=== PATIENT | female | born 1960 | race American Indian/Alaskan Native ===

== ENCOUNTER 2018-01-23 13:18 | Inpatient (IN) | payer OTHER ==
--- NOTE | 2018-01-23 13:46 | ED PDOC ---
Arrival/HPI - General Time Seen by Provider: 01/23/18 13:30 Historian: Patient - History of Present Illness Narrative History of Present Illness (Text): 01/23/18 13:45 57 year old female, with past medical history of hypertension, "thyroid problem ", migraine and UTI, surgical history of hysterectomy on 01/13/2017, presents to the Emergency department from [facility] complaining of constant lower abdominal pain since 2 am this morning. Patient states waking up with the pain with mild improvement after loose bowel movement at 4am this morning. She states pain however persisted and she went to [facility]. Upon examination at [facility], patient expressed "excruciating" pain to left lower and upper quadrant upon palpation and was subsequently referred to the [facility] [place] evaluation. Patient states she has been generally feeling unwell since yesterday informing mild nausea, intermittent migraines and decreased appetite. Patient states having a bowl of cereal prior to going to bed last night. Patient denies any episodes of vomiting. Patient informs exacerbation of pain with movement however denies pain with inspirations. Patient denies any fever but has possibly felt chills, denies hematuria, denies dysuria, denies vaginal bleeding, denies back pain, denies leg swelling or discomfort, chest pain, shortness of breath or any other complaints. PMD: Dr. Kate 01/23/18 17:01 Time/Duration: Other (since 2 am this morning) Symptom Onset: Gradual Symptom Course: Unchanged Quality: Aching Activities at Onset: Light Context: Home Past Medical History - Provider Review Nursing Documentation Reviewed: Yes Family/Social History - Physician Review Nursing Documentation Reviewed: Yes Family/Social History: No Known Family HX Allergies/Home Meds Allergies/Adverse Reactions: Allergies Penicillins Allergy (Verified 01/23/18 13:47) ITCHING Review of Systems - Review of Systems Constitutional: Fatigue. absent: Fevers ENT: absent: Hearing Changes Respiratory: absent: SOB Cardiovascular: absent: Chest Pain Gastrointestinal: Abdominal Pain, Nausea, Appetite Changes. absent: Diarrhea, Vomiting, Hematochezia, Hematemesis Genitourinary Female: absent: Dysuria, Hematuria, Vaginal Bleeding Musculoskeletal: absent: Back Pain, Neck Pain Skin: absent: Rash Neurological: absent: Headache, Focal Weakness Endocrine: absent: Polyuria Hemo/Lymphatic: absent: Easy Bleeding Psychiatric: absent: Depression Physical Exam - Physical Exam Narrative Physical Exam (Text): 01/23/18 14:01 Head: Atraumatic. Normocephalic. Eyes: PERRL. EOMI. Conjunctivae are not pale. Sclera anicteric. ENT: Mucous membranes are moist and intact. Oropharynx is clear and symmetric. Neck: Supple. Full ROM. No JVD. No lymphadenopathy. No meningeal signs. Cardiovascular: Regular rate. Regular rhythm. No murmurs, rubs, or gallops. Distal pulses are 2+ and symmetric. Pulmonary/Chest: No evidence of respiratory distress. Clear to auscultation bilaterally. No wheezing, rales or rhonchi. Abdominal: Soft, mildly distended. Significant focal pain localized to left lower and upper quadrant with rebound and guarding. No pulsations. Rectal: no gross bleeding Back: No CVA tenderness. Extremities: No edema. No cyanosis. No clubbing. Full range of motion in all extremities. No calf tenderness. Skin: Skin is warm and dry. No petechiae. No purpura. No jaundice. Neurological: Alert, awake, and oriented. Motor and sensory exam intact, no meningeal signs. Psychiatric: Good eye contact. Normal interaction, affect, and behavior. 01/23/18 14:10 Vital Signs Reviewed: Yes Vital Signs Temp Pulse Resp BP Pulse Ox 01/23/18 15:54 70 18 130/68 99 01/23/18 13:48 98.9 F 84 18 121/64 100 Temperature: Afebrile Blood Pressure: Normal Pulse: Regular Respiratory Rate: Normal Appearance: Positive for: Non-Toxic, Uncomfortable Pain Distress: Severe Mental Status: Positive for: Alert and Oriented X 3 Medical Decision Making ED Course and Treatment: 01/23/18 14:00 Impression: 57 year old female presents to the Emergency department complaining of lower abdominal pain. Differential Diagnosis included but are not limited to: diverticulitis, bowel obstruction, perforation, colitis, gastroenteritis Plan: -- VBG -- CT of Abdomen/Pelvis -- Labs -- EKG -- Chest X-ray -- Morphine -- IV Fluids -- Flagyl -- Blood Culture -- Urine Culture -- Urinalysis -- Reassess and disposition Prior Visits: Notes and results from previous visits were reviewed. Progress Notes: 01/23/18 14:00 Based on patient's initial exam revealing severe left sided abdominal pain as well as history of sudden onset of pain, differential diagnosis includes perforation, ruptured viscous, diverticulitis, inflammatory bowel disease, but not limited to this.. Will consult surgery based on initial exam and history, provide IV fluids, conduct basic labs and CT of Abdomen/Pelvis with IV contrast. Will monitor and continue serial exams. Antibiotics reviewed with patient. Allergies, risks/side effects reviewed with patient. On-call surgeon Dr. Tristan Cardenas consulted, as well as surgical team, who has initially evaluated patient. Patient with improved but persistent pain after Morphine. CT reveals acute diverticulitis, on CT currently no perforation but due to persistent pain will admit for iv antibiotics, serial exams, specialty consultations. 01/23/18 17:02 - Lab Interpretations Lab Results: 01/23/18 14:16 01/23/18 14:16 Lab Results 01/23/18 14:36: POC Glucose (mg/dL) 61 L 01/23/18 14:16: Urine Color Yellow, Urine Appearance Clear, Urine pH 6.5, Ur Specific [place] 1.025, Urine Protein Trace H, Urine Glucose (UA) Negative, Urine Ketones Negative, Urine Blood Negative, Urine Nitrate Negative, Urine Bilirubin Negative, Urine Urobilinogen 0.2, Ur Leukocyte Esterase Small H, Urine RBC 0 - 2, Urine WBC 5 - 10, Ur Epithelial Cells Many, Amorphous Sediment Few, Urine Bacteria Many, Urine Other Uyeast 01/23/18 14:16: Sodium 143, Chloride 100, Potassium 4.0, Carbon Dioxide 32, Anion Gap 15, BUN 12, Creatinine 0.9, Est GFR ( Amer) > 60, Est GFR (Non- Af Amer) > 60, Random Glucose 89, Calcium 10.0, Total Bilirubin 0.5, AST 44 H, ALT 55, Alkaline Phosphatase 149 H, Lactate Dehydrogenase 457, Total Creatine Kinase 42, Troponin I < 0.01, Total Protein 8.0, Albumin 4.4, Globulin 3.5, Albumin/Globulin Ratio 1.2, Amylase 75, Lipase 49 01/23/18 14:16: PT 14.9 H, INR 1.30, APTT 34.7 01/23/18 14:16: WBC 11.4 H, RBC 5.14, Hgb 14.0, Hct 41.3, MCV 80.4, MCH 27.2, MCHC 33.9, RDW 14.3, Plt Count 240, MPV 9.4, Gran % 83.9 H, Lymph % (Auto) 11.2 L, [place] % (Auto) 4.5, Eos % (Auto) 0.3 L, Baso % (Auto) 0.1, Gran # 9.60 H, Lymph # (Auto) 1.3, [place] # (Auto) 0.5, Eos # (Auto) 0.0, Baso # (Auto) 0.01 01/23/18 14:16: pO2 20 L, VBG pH 7.37, VBG pCO2 58.0, VBG HCO3 33.5 H, VBG Total CO2 35.3 H, VBG O2 Sat (Calc) 35.8 L, VBG Base Excess 6.4 H, VBG Potassium 3.9, Sodium 139.0, Chloride 102.0, Glucose 85, Lactate 1.3, FiO2 21.0 , Venous Blood Potassium 3.9 - RAD Interpretation Radiology Orders: 01/23/18 13:50 ABD & PELVIS IV CONTRAST ONLY [CT] Stat 01/23/18 13:53 CHEST PORTABLE [RAD] Stat - Medication Orders Current Medication Orders: Ciprofloxacin (Cipro 400mg/200ml Dsw) 400 mg in 200 mls @ 133.3 mls/hr IVPB STAT STA PRN Reason: Protocol Stop: 01/23/18 17:48 Last Admin: 01/23/18 16:48 Dose: 133.3 mls/hr eMAR Start Stop Document 01/23/18 16:48 HI (Rec: 01/23/18 16:[address] [id number] Intravenous Solution Start Date 01/23/18 Start Time 16:48 Discontinued Medications Sodium Chloride (Sodium Chloride 0.9%) 1,000 mls @ 1,000 mls/hr IV .Q1H STA Stop: 01/23/18 14:54 Last Admin: 01/23/18 14:28 Dose: 1,000 mls/hr eMAR Start Stop Document 01/23/18 14:28 HI (Rec: 01/23/18 14:29 [id number] Intravenous Solution Start Date 01/23/18 Start Time 14:29 Metronidazole (Flagyl) 500 mg in 100 mls @ 100 mls/hr IVPB STAT STA PRN Reason: Protocol Stop: 01/23/18 14:54 Last Admin: 01/23/18 14:30 Dose: 100 mls/hr eMAR Start Stop Document 01/23/18 14:30 HI (Rec: 01/23/18 14:30 [id number] Intravenous Solution Start Date 01/23/18 Start Time 14:30 Morphine Sulfate (Morphine) 2 mg IVP STAT STA Stop: 01/23/18 13:56 Last Admin: 01/23/18 14:29 Dose: 2 mg MAR Pain Assessment Document 01/23/18 14:29 HI (Rec: 01/23/18 14:[address] [id number] Pain Reassessment Is this a pain reassessment? No Sleep Is patient sleeping during reassessment? No Presence of Pain Presence of Pain Yes Location Upper or Lower Lower Pain Location Body Site Abdomen Description Description Sharp Intensity of Pain at present 8 IVP Administration Document 01/23/18 14:29 HI (Rec: 01/23/18 14:[address] [id number] Charges for Administration # of IVP Administrations 1 Re-Assess: SAM Pain Assessment Document 01/23/18 15:29 HI (Rec: 01/23/18 16:55 HI [id number]) Pain Reassessment Is this a pain reassessment? Yes Sleep Is patient sleeping during reassessment? Yes - Scribe Statement The provider has reviewed the documentation as recorded by the Scribe Shayla Martínez. All medical record entries made by the Scribe were at my direction and personally dictated by me. I have reviewed the chart and agree that the record accurately reflects my personal performance of the history, physical exam, medical decision making, and the department course for this patient. I have also personally directed, reviewed, and agree with the discharge instructions and disposition. Disposition/Present on Arrival - Present on Arrival Any Indicators Present on Arrival: Yes - Disposition Have Diagnosis and Disposition been Completed?: Yes Diagnosis: Acute diverticulitis Disposition: HOSPITALIZED Disposition Time: 16:30 Patient Plan: Admission Condition: SERIOUS
[2018-01-23 13:47] VITALS: BMI 32.5
[2018-01-23] MEDS ORDERED: metroNIDAZOLE IV 500 mg/100 ml 500 MG/100 ML BAG IVPB STA (13:55)
[2018-01-23] MEDS ORDERED: Sodium Chloride 0.9% 1,000 ML IV STA (13:55)
[2018-01-23] MEDS ORDERED: Morphine 2 mg/ml ISec IVP STA (13:55)
[2018-01-23 14:46] LABS: VENOUS BLOOD GAS BASE EXCESS 6.4 mmol/L (0.0-2.0); VENOUS BLOOD GAS PO2 20 mm/Hg (30-55); VENOUS BLOOD PH 7.37 (7.32-7.43)
[2018-01-23 14:52] LABS: BASO # 0.01 K/mm3 (0.0-2.0); BASO % 0.1 % (0.0-3.0); EOS % 0.3 % (1.5-5.0); GRAN # 9.6 (1.4-6.5); GRAN % 83.9 % (50.0-68.0); LYMPH # 1.3 (1.2-3.4); LYMPH % 11.2 % (22.0-35.0); MEAN CELL VOLUME 80.4 fl (80.0-105.0); MEAN CORPUSCULAR HEMOGLOBIN 27.2 pg (25.0-35.0); MEAN CORPUSCULAR HGB CONC 33.9 g/dl (31.0-37.0); MEAN PLATELET VOLUME 9.4 fl (7.0-11.0); MONO # 0.5 (0.1-0.6); MONO % 4.5 % (1.0-6.0); RBC 5.14 10^6/uL (3.5-6.1); RED CELL DISTRIBUTION WIDTH 14.3 % (11.5-14.5); WHITE BLOOD COUNT 11.4 10^3/ul (4.5-11.0)
--- NOTE | 2018-01-23 14:52 | RAD ---
Date of service: 01/23/2018 HISTORY: eval for free air COMPARISON: No prior. FINDINGS: LUNGS: No active pulmonary disease. PLEURA: No significant pleural effusion identified, no pneumothorax apparent. CARDIOVASCULAR: Normal. OSSEOUS STRUCTURES: No significant abnormalities. VISUALIZED UPPER ABDOMEN: Please note that the examination states evaluation for free air. The examination is performed with the patient semi upright. This is not considered an appropriately sensitive test for free intraperitoneal air. OTHER FINDINGS: None. IMPRESSION: Unremarkable examination. No definite free air identified.
[2018-01-23 14:53] LABS: PH,URINE 6.5 (4.7-8.0); URINE BILIRUBIN NEGATIVE (NEGATIVE); URINE BLOOD NEGATIVE (NEGATIVE); URINE GLUCOSE (UA) NEGATIVE (NEGATIVE); URINE LEUKOCYTE ESTERASE SMALL Leu/uL (NEGATIVE); URINE PROTEIN TRACE mg/dL (<30 mg/dL); URINE UROBILINOGEN 0.2 E.U./dL (<1 E.U./dL)
[2018-01-23 14:56] LABS: INR 1.3; PARTIAL THROMBOPLASTIN TIME 34.7 Seconds (25.1-36.5); PROTHROMBIN TIME 14.9 SECONDS (9.4-12.5); URINE APPEARANCE CLEAR (CLEAR); URINE COLOR YELLOW (YELLOW)
[2018-01-23 14:57] LABS: ALB/GLOB RATIO 1.2 (1.1-1.8); ALBUMIN 4.4 g/dL (3.0-4.8); ALT/SGPT 55 U/L (7-56); AMYLASE 75 U/L (35-125); AST/SGOT 44 U/L (14-36); BLOOD UREA NITROGEN 12 mg/dL (7-21); GFR NON-AFRICAN AMERICAN > 60; LIPASE 49 U/L (23-300)
[2018-01-23 15:00] LABS: URINE RBC 0 - 2 /hpf (0-2)
[2018-01-23 15:01] LABS: URINE AMORPHOUS SEDIMENT FEW; URINE BACTERIA MANY (NEG); URINE EPITHELIAL CELLS MANY /hpf (0-5)
[2018-01-23] MEDS ORDERED: Iohexol 350 MG/100 ML VIAL ONE (15:01)
[2018-01-23 15:07] LABS: TROPONIN I < 0.01 ng/mL
--- NOTE | 2018-01-23 16:02 | CT ---
Date of service: 01/23/2018 PROCEDURE: CT Abdomen and Pelvis with contrast HISTORY: severe left sided pain ? perforation COMPARISON: None. TECHNIQUE: Contrast dose: 100 mL Omnipaque 350 Radiation dose: Total exam DLP = 954.73 mGy-cm. This CT exam was performed using one or more of the following dose reduction techniques: Automated exposure control, adjustment of the mA and/or kV according to patient size, and/or use of iterative reconstruction technique. FINDINGS: LOWER THORAX: Minimal linear scar/ atelectasis in left lower lobe. Small hiatal hernia. LIVER: Normal size, contour and attenuation. Mild central intrahepatic biliary dilatation consistent with prior cholecystectomy. No evidence of drew biliary obstruction. No mass. GALLBLADDER AND BILE DUCTS: Cholecystectomy. PANCREAS: Unremarkable. No gross lesion or ductal dilatation. SPLEEN: Unremarkable. ADRENALS: Unremarkable. No mass. KIDNEYS AND URETERS: Unremarkable. No hydronephrosis. No solid mass. VASCULATURE: Unremarkable. No aortic aneurysm. BOWEL: Acute sigmoid diverticulitis. Very sigmoid inflammatory change. Trace fluid in the pelvis. No free air. No abscess. No bowel obstruction. No other abnormal bowel loops are identified. APPENDIX: Appendix significant for possible multiple appendicoliths. No evidence of appendicitis. PERITONEUM: Trace fluid in cul-de-sac. No pneumoperitoneum. LYMPH NODES: Unremarkable. No enlarged lymph nodes. BLADDER: Poorly distended. No gross abnormality. REPRODUCTIVE: Status post hysterectomy BONES: No fracture. Mild thoracolumbar dextroscoliosis. OTHER FINDINGS: None. IMPRESSION: Acute sigmoid diverticulitis. No evidence of free air. No abscess. Trace fluid in pelvis. Minor findings as above.
[2018-01-23] MEDS ORDERED: Ciprofloxacin 400mg/200ml D5W 400 MG/200 ML BAG IVPB STA (16:18)
--- NOTE | 2018-01-23 17:26 | CP.PCM.CON ---
<Wilner Nino - Last Filed: 01/23/18 17:53> History of Present Illness - History of Present Illness History of Present Illness: General Surgery Consult For Dr. Cardenas CC: Abdominal Pain This is a 57F with a PMH of hypothyroid, and migraines. She reports that last night at 2am she woke from sleep with an acute onset of sever abdominal pain. She thought it was gas pain and took rollaides, which did not help. She reports that she moved her bowels at 4am, it was non blood and of normal caliber and that two did not help. She reports that pain is band like on her lower abdomen without any laterality. She reports she had a similar episode of pain like this once before, and it was secondary to a UTI she experienced following her hysterectomy. She reports that the pain is worse with movement and lying supine and it is improved when she is in a semiseated position. She reports that she has had a colonoscopy 4 years ago and she denies any familiarity of the term diverticulitis or diverticulosis. She reports nausea however she denies vomiting , she denies any dyuria or hematuria. She denies any chest pain or SOB. PMH: Hypothyroid, Migraines PSH: Vaginal Hysterectomy, Lap juan carols, Right knee meniscus repair Meds: Synthroid 50mcg, Sumatripatin ALL: PCN Social: Denies ETOH, Tobacco, Drugs Review of Systems - Review of Systems All systems: reviewed and no additional remarkable complaints except - Constitutional Constitutional: Headache. absent: Anorexia, Chills - EENT Eyes: absent: Blind Spots, Blurred Vision Nose/Mouth/Throat: absent: Nasal Congestion, Nasal Discharge, Hoarsness - Cardiovascular Cardiovascular: absent: Chest Pain, Dyspnea - Respiratory Respiratory: absent: Dyspnea, Dyspnea on Exertion - Gastrointestinal Gastrointestinal: Abdominal Pain, Bloating, Nausea. absent: Loose Stools, Vomiting - Genitourinary Genitourinary: absent: Difficulty Urinating, Dysuria Past Patient History - Past Social History Smoking Status: Never Smoked - CARDIAC Hx Hypertension: Yes - PSYCHIATRIC Hx Substance Use: No - SURGICAL HISTORY Hx Hysterectomy: Yes - ANESTHESIA Hx Anesthesia: Yes Hx Anesthesia Reactions: No Meds Allergies/Adverse Reactions: Allergies Allergy/AdvReac Type Severity Reaction Status Date / Time ciprofloxacin Allergy ITCHING Verified 01/23/18 19:09 Penicillins Allergy ITCHING Verified 01/23/18 13:47 - Medications Medications: Current Medications Ciprofloxacin (Cipro 400mg/200ml Dsw) 400 mg in 200 mls @ 133.3 mls/hr IVPB STAT STA PRN Reason: Protocol Stop: 01/23/18 17:48 Last Admin: 01/23/18 16:48 Dose: 133.3 mls/hr Physical Exam - Constitutional Appears: Non-toxic, No Acute Distress - Head Exam Head Exam: ATRAUMATIC, NORMOCEPHALIC - Eye Exam Eye Exam: EOMI, Normal appearance - ENT Exam ENT Exam: Mucous Membranes Moist - Respiratory Exam Respiratory Exam: NORMAL BREATHING PATTERN - Cardiovascular Exam Cardiovascular Exam: REGULAR RHYTHM, +S1, +S2 - GI/Abdominal Exam GI & Abdominal Exam: Distended, Soft, Tenderness. absent: Firm, Guarding, Hernia, Mass - Rectal Exam Rectal Exam: NORMAL INSPECTION - Neurological Exam Neurological exam: Alert, Oriented x3 - Psychiatric Exam Psychiatric exam: Normal Affect, Normal Mood - Skin Skin Exam: Dry, Intact Results - Vital Signs Recent Vital Signs: Last Vital Signs Temp 98.9 F 01/23/18 13:48 Pulse 70 01/23/18 15:54 Resp 18 01/23/18 15:54 BP 130/68 01/23/18 15:54 Pulse Ox 99 01/23/18 15:54 - Labs Result Diagrams: 01/23/18 14:16 01/23/18 14:16 Labs: Laboratory Results - last 24 hr 01/23/18 01/23/18 01/23/18 14:16 14:16 14:16 WBC 11.4 H RBC 5.14 Hgb 14.0 Hct 41.3 MCV 80.4 MCH 27.2 MCHC 33.9 RDW 14.3 Plt Count 240 MPV 9.4 Gran % 83.9 H Lymph % (Auto) 11.2 L [place] % (Auto) 4.5 Eos % (Auto) 0.3 L Baso % (Auto) 0.1 Gran # 9.60 H Lymph # (Auto) 1.3 [place] # (Auto) 0.5 Eos # (Auto) 0.0 Baso # (Auto) 0.01 PT 14.9 H INR 1.30 APTT 34.7 pO2 20 L VBG pH 7.37 VBG pCO2 58.0 VBG HCO3 33.5 H VBG Total CO2 35.3 H VBG O2 Sat (Calc) 35.8 L VBG Base Excess 6.4 H VBG Potassium 3.9 Sodium 139.0 Chloride 102.0 Glucose 85 Lactate 1.3 FiO2 21.0 Potassium Carbon Dioxide Anion Gap BUN Creatinine Est GFR ( Amer) Est GFR (Non-Af Amer) POC Glucose (mg/dL) Random Glucose Calcium Total Bilirubin AST ALT Alkaline Phosphatase Lactate Dehydrogenase Total Creatine Kinase Troponin I Total Protein Albumin Globulin Albumin/Globulin Ratio Amylase Lipase Venous Blood Potassium 3.9 Urine Color Urine Appearance Urine pH Ur Specific [place] Urine Protein Urine Glucose (UA) Urine Ketones Urine Blood Urine Nitrate Urine Bilirubin Urine Urobilinogen Ur Leukocyte Esterase Urine RBC Urine WBC Ur Epithelial Cells Amorphous Sediment Urine Bacteria Urine Other 01/23/18 01/23/18 01/23/18 14:16 14:16 14:36 WBC RBC Hgb Hct MCV MCH MCHC RDW Plt Count MPV Gran % Lymph % (Auto) [place] % (Auto) Eos % (Auto) Baso % (Auto) Gran # Lymph # (Auto) [place] # (Auto) Eos # (Auto) Baso # (Auto) PT INR APTT pO2 VBG pH VBG pCO2 VBG HCO3 VBG Total CO2 VBG O2 Sat (Calc) VBG Base Excess VBG Potassium Sodium 143 Chloride 100 Glucose Lactate FiO2 Potassium 4.0 Carbon Dioxide 32 Anion Gap 15 BUN 12 Creatinine 0.9 Est GFR ( Amer) > 60 Est GFR (Non-Af Amer) > 60 POC Glucose (mg/dL) 61 L Random Glucose 89 Calcium 10.0 Total Bilirubin 0.5 AST 44 H ALT 55 Alkaline Phosphatase 149 H Lactate Dehydrogenase 457 Total Creatine Kinase 42 Troponin I < 0.01 Total Protein 8.0 Albumin 4.4 Globulin 3.5 Albumin/Globulin Ratio 1.2 Amylase 75 Lipase 49 Venous Blood Potassium Urine Color Yellow Urine Appearance Clear Urine pH 6.5 Ur Specific [place] 1.025 Urine Protein Trace H Urine Glucose (UA) Negative Urine Ketones Negative Urine Blood Negative Urine Nitrate Negative Urine Bilirubin Negative Urine Urobilinogen 0.2 Ur Leukocyte Esterase Small H Urine RBC 0 - 2 Urine WBC 5 - 10 Ur Epithelial Cells Many Amorphous Sediment Few Urine Bacteria Many Urine Other Uyeast - Imaging and Cardiology CT scan - abdomen Status: Image reviewed by me, Report reviewed by me CT scan - pelvis Status: Image reviewed by me, Report reviewed by me Assessment & Plan - Assessment and Plan (Free Text) Assessment: 57F with acute noncomplicated sigmoid diverticulitis NPO IVF IV abx F/U GI recs Continue medical management per primary team Serial Abdominal exams D/W Dr. Ronald Nino PGY3 <Cher Cardenas - Last Filed: 01/24/18 09:19> Meds - Medications Medications: Current Medications Atorvastatin Calcium (Lipitor) 20 mg PO DIN [place] Enoxaparin Sodium (Lovenox) 40 mg SC DAILY [place] PRN Reason: Protocol Last Admin: 01/23/18 18:40 Dose: Not Given Metronidazole (Flagyl) 500 mg in 100 mls @ 100 mls/hr IVPB Q8 [place] PRN Reason: Protocol Last Admin: 01/24/18 06:19 Dose: 100 mls/hr Lactated Ringer's (Lactated Ringer's) 1,000 mls @ 126 mls/hr IV .[id number] [facility] Last Admin: 01/23/18 18:43 Dose: 126 mls/hr Aztreonam (Azactam 1 Gm) 100 mls @ 100 mls/hr IVPB Q8 [place] PRN Reason: Protocol Stop: 01/30/18 22:01 Last Admin: 01/24/18 05:38 Dose: 100 mls/hr Vancomycin HCl (Vancomycin 1gm) 1 gm in 250 mls @ 167 mls/hr IVPB Q12H [place] PRN Reason: Protocol Levothyroxine Sodium (Synthroid) 50 mcg PO 0600 [facility] Last Admin: 01/24/18 05:39 Dose: 50 mcg Morphine Sulfate (Morphine) 1 mg IVP Q3H PRN PRN Reason: Pain, moderate (4-7) Results - Vital Signs Recent Vital Signs: Last Vital Signs Temp 98.5 F 01/24/18 06:00 Pulse 65 01/24/18 06:00 Resp 20 01/24/18 06:00 BP 104/54 L 01/24/18 06:00 Pulse Ox 99 01/24/18 06:00 - Labs Result Diagrams: 01/23/18 14:16 01/23/18 14:16 Assessment & Plan - Assessment and Plan (Free Text) Plan: I personally saw and examined the patient with the resident staff and agree with the above assessment and plan. I personally reviewed the available diagnostic images and imaging report. First episode of uncomplicated sigmoid diverticulitis, mod inflammation of long redundant sigmoid colon, trace pelvic fluid, without gross perforation or abscess. Continue NPO. IVF. Cipro/flagyl. NGT if nausea vomiting. Continue bowel rest for 48-72 hours until anorexia and pain resolves, and tenderness minimal. Serial abdominal exams. No surgical intervention indicated as this is patient's first attack and no complicated disease. Will need colonoscopy following discharge. Lifestyle modifications including weight loss, dietary fiber/bulking agents, stool softeners/laxative to avoid constipation, and PO daily hydration. Smoking cessation if applicable, minimize etoh, and daily cardiovascular exercise.
[2018-01-23] MEDS ORDERED: Morphine 2 mg/ml ISec IVP PRN (17:57)
[2018-01-23] MEDS ORDERED: metroNIDAZOLE IV 500 mg/100 ml 500 MG/100 ML BAG IVPB SCH (18:00)
[2018-01-23] MEDS ORDERED: Dextrose 5%/0.9% NS 1,000 ML IV SCH (18:00)
[2018-01-23] MEDS ORDERED: levoFLOXacin 500 mg in D5W 500 MG/100 ML BAG IVPB SCH (18:00)
--- NOTE | 2018-01-23 18:16 | CP.PCM.HP ---
<JabierTung Malik - Last Filed: 01/23/18 19:25> History of Present Illness - History of Present Illness History of Present Illness: Tung Eugene PGY1 Medicine note for Dr Monge. Pt is a 57 yo female with a PMH of hypothyroid, migraine headaches, UTI's, HLD who presents with "excruciating right sided abdominal pain" which woke her from sleep at 2am last night. Pt reports taking Rolaids which did not relieve the pain very much. Pt also admits to feeling feverish and having chills. She describers the pain as pressure which is somewhat relieved by moving her bowels. She denies blood in the stool, chest pain, or SOB. Pt reports having a migraine all day yesterday. She admits to having an irritation/ discomfort during urination. Pt denies vomiting, but admits to nausea. A 12 point ROS was obtained and added to HPI where appropriate. PMH: hypothyroid, migraine, UTI, HLD PSH: hysterectomy for "abnormal cells" FH: DM, heart disease SH: denies tobacco, social alcohol, denies drugs, works at the [employer] Home meds: levothyroxine 50mcg, sumatriptan, Lipitor 20 Allergies: PNC hives Present on Admission - Present on Admission Any Indicators Present on Admission: No Review of Systems - Review of Systems Review of Systems: A 12 point ROS was obtained and pertinent pos/neg added to HPI where appropriate. Past Patient History - Past Social History Smoking Status: Never Smoked - CARDIAC Hx Hypertension: Yes - PSYCHIATRIC Hx Substance Use: No - SURGICAL HISTORY Hx Hysterectomy: Yes - ANESTHESIA Hx Anesthesia: Yes Hx Anesthesia Reactions: No Meds Allergies/Adverse Reactions: Allergies Allergy/AdvReac Type Severity Reaction Status Date / Time ciprofloxacin Allergy ITCHING Verified 01/23/18 19:09 Penicillins Allergy ITCHING Verified 01/23/18 13:47 Physical Exam - Constitutional Appears: No Acute Distress - Head Exam Head Exam: ATRAUMATIC, NORMOCEPHALIC - Eye Exam Eye Exam: EOMI - ENT Exam ENT Exam: Mucous Membranes Moist - Respiratory Exam Respiratory Exam: Clear to Auscultation Bilateral, NORMAL BREATHING PATTERN. absent: Accessory Muscle Use, Rales, Wheezes, Respiratory Distress, Stridor - Cardiovascular Exam Cardiovascular Exam: REGULAR RHYTHM, RRR, +S1, +S2. absent: JVD - GI/Abdominal Exam GI & Abdominal Exam: Normal Bowel Sounds, Soft, Tenderness. absent: Distended, Firm, Guarding, Rebound, Rigid Additional comments: pain to palpation, both lower quadrants - Extremities Exam Extremities exam: Positive for: full ROM - Neurological Exam Neurological exam: Alert, Oriented x3 - Psychiatric Exam Psychiatric exam: Normal Affect, Normal Mood - Skin Skin Exam: Dry, Normal Color, Warm Results - Vital Signs Recent Vital Signs: Last Vital Signs Temp 98.7 F 01/23/18 17:38 Pulse 80 01/23/18 17:35 Resp 18 01/23/18 17:35 BP 122/74 01/23/18 17:35 Pulse Ox 96 01/23/18 17:35 - Labs Result Diagrams: 01/23/18 14:16 01/23/18 14:16 Assessment & Plan - Assessment and Plan (Free Text) Assessment: Pt is a 57 yo female with a PMH of hypothyroid, migraine headaches, UTI's, HLD who presents with "excruciating right sided abdominal pain" which woke her from sleep at 2am last night. Plan: Acute Sigmoid Diverticulitis - CT: acute sigmoid diverticulitis. no evidence of free air, no abscess - CXR: unremarkable - WBC 11.4 - ordered blood cultures - ordered urine cultures - surgery consulted - GI consulted, - NPO, except meds, will advance as tolerated per surgery - continue LR 126ml/hr - azactam 1 gram Q8H (Cipro caused hives at IV site), pt given PO Benadryl - Flagyl 500mg q8h - Morphine 1mg q3h prn pain - Zofran 4mg q6h prn nausea/ vomiting - pt recommended to follow up with a colonoscopy in 6 weeks, after inflammation subsides Hypothyroid - Levothyroxine 50mcg, continued from home meds HLD - Lipitor 20, continued from home meds Migraine Headache - takes sumatriptan at home, will hold during admission Ppx - started lovenox - started Pt seen, examined, assessment/ plan discussed with Dr Monge. Tung Eugene PGY1 Internal Medicine Resident - Date & Time Date: 01/23/18 Time: 18:00 <Elliot Monge - Last Filed: 01/24/18 07:49> Results - Vital Signs Recent Vital Signs: Last Vital Signs Temp 99 F 01/23/18 21:55 Pulse 71 01/23/18 21:55 Resp 18 01/23/18 21:55 BP 121/69 01/23/18 21:55 Pulse Ox 99 01/23/18 21:55 - Labs Result Diagrams: 01/23/18 14:16 01/23/18 14:16 Attending/Attestation - Attestation I have personally seen and examined this patient.: Yes I have fully participated in the care of the patient.: Yes I have reviewed all pertinent clinical information: Yes Notes (Text): 01/24/18 07:45 Medical record note made by the resident after discussion with my direction and input after the patient was personally seen and examined by me. I have reviewed the chart and agree that the record accurately reflects by personal performance of the history, physical exam, data review, and medical decision-making, in the course for the patient. I have also personally directed the plan of care. 57 yrs old female with PMH of hypothyroid, migraine headaches and hyperlipidemia is admitted with acute sigmoid diverticulitis. Agreed with NPO except medication, IV hydration , morphine for pain and IV antibiotics. We will start clear liquid once abdominal pain will improve in 24 hour . Patient will need Colonoscopy in 6-8 weeks as out patient. Management plan was discussed in detail with patient. Education was provided.
[2018-01-23] MEDS: Enoxaparin 40 mg Syringe SC SCH (18:40)
[2018-01-23] MEDS: Lactated Ringer's 1,000 ML IV SCH (18:43)
--- NOTE | 2018-01-23 21:27 | CARD ---
APPROVED REPORT Date of service: 01/23/2018 EKG Measurement Heart [id number] <Conclusion> Normal sinus rhythm with sinus arrhythmia Normal ECG
[2018-01-23] MEDS: Aztreonam 1 Gm in NS 100mL 100 ML IVPB SCH (21:28)
[2018-01-23] MEDS ORDERED: Ciprofloxacin 400mg/200ml D5W 400 MG/200 ML BAG IVPB SCH (22:00)
[2018-01-23] MEDS: metroNIDAZOLE IV 500 mg/100 ml 500 MG/100 ML BAG IVPB SCH (22:52)
[2018-01-24] MEDS: Aztreonam 1 Gm in NS 100mL 100 ML IVPB SCH ×3 (05:38→21:44)
[2018-01-24] MEDS: Levothyroxine 50 MCG TAB PO SCH (05:39)
[2018-01-24] MEDS: metroNIDAZOLE IV 500 mg/100 ml 500 MG/100 ML BAG IVPB SCH ×3 (06:19→22:23)
--- NOTE | 2018-01-24 08:14 | CP.PCM.CON ---
<Ashely Durham - Last Filed: 01/24/18 14:00> History of Present Illness - History of Present Illness History of Present Illness: [id number] ID Consult Note for Dr. Rajan 57yo female PMHx hypothyroid, migraine, UTI, HLD, TIA, cervical dysplasia presented to the ED with lower abdominal pain for 1 day. Patient reports that the pain began 2 nights ago at 2am when she believed it was related to gas and took Rolaids- 2 hours after this she reported she had a regular BM that was nonbloody nonmelenotic which helped the pain. However that morning her abdominal pain became "excruciating" and was a constant 10/10 sharp sensation in her lower abdomen. She reported the pain started in her right lower abdomen and radiated to the left side. She described the pain as feeling like her "bottom was coming out." The patient went to the urgent care [facility] and was seen by Dr. Singh who called EMS to bring her to [facility]. Patient has been NPO overnight. This AM she reported her abdominal pain had improved. She admitted to some nausea and a headache but denied any fever, chills, dizziness, chest pain, palpitations, SOB, cough, vomiting, bowel complaints, pain/swelling in her legs bilaterally. Patient also admitted to a discomfort on urination but did not describe it as a burning/painful sensation. PMHx: hypothyroid, migraine, UTI, HLD, TIA, cervical dysplasia PSurgHx: hysterectomy December 2016, cholecystectomy, R knee meniscus repair Meds: pls see chart All: ciprofloxacin, PCN SocHx: denies tobacco, social alcohol, denies drugs, works at the [employer] FamHx: DM, heart disease ROS admits: nausea, headache, discomfort on urination, mild lower abd pain denies: fever, chills, dizziness, chest pain, palpitations, SOB, cough, nausea, vomiting, constipation, diarrhea, b/l LE pain/swelling Review of Systems - Review of Systems All systems: reviewed and no additional remarkable complaints except Review of Systems: as per HPI Past Patient History - Past Social History Smoking Status: Never Smoked - CARDIAC Hx Hypertension: Yes - MUSCULOSKELETAL/RHEUMATOLOGICAL Hx Falls: No - PSYCHIATRIC Hx Substance Use: No - SURGICAL HISTORY Hx Hysterectomy: Yes - ANESTHESIA Hx Anesthesia: Yes Hx Anesthesia Reactions: No Meds Allergies/Adverse Reactions: Allergies Allergy/AdvReac Type Severity Reaction Status Date / Time ciprofloxacin Allergy ITCHING Verified 01/23/18 19:09 Penicillins Allergy ITCHING Verified 01/23/18 13:47 - Medications Medications: Current Medications Atorvastatin Calcium (Lipitor) 20 mg PO DIN [place] Enoxaparin Sodium (Lovenox) 40 mg SC DAILY [place] PRN Reason: Protocol Last Admin: 01/23/18 18:40 Dose: Not Given Metronidazole (Flagyl) 500 mg in 100 mls @ 100 mls/hr IVPB Q8 [facility] PRN Reason: Protocol Last Admin: 01/24/18 06:19 Dose: 100 mls/hr Lactated Ringer's (Lactated Ringer's) 1,000 mls @ 126 mls/hr IV .Q7H57M [facility] Last Admin: 01/23/18 18:43 Dose: 126 mls/hr Aztreonam (Azactam 1 Gm) 100 mls @ 100 mls/hr IVPB Q8 [facility] PRN Reason: Protocol Stop: 01/30/18 22:01 Last Admin: 01/24/18 05:38 Dose: 100 mls/hr Vancomycin HCl (Vancomycin 1gm) 1 gm in 250 mls @ 167 mls/hr IVPB Q12H [facility] PRN Reason: Protocol Levothyroxine Sodium (Synthroid) 50 mcg PO 0600 [facility] Last Admin: 01/24/18 05:39 Dose: 50 mcg Morphine Sulfate (Morphine) 1 mg IVP Q3H PRN PRN Reason: Pain, moderate (4-7) Physical Exam - Constitutional Appears: Non-toxic, No Acute Distress - Head Exam Head Exam: ATRAUMATIC, NORMAL INSPECTION, NORMOCEPHALIC - Eye Exam Eye Exam: EOMI, Normal appearance, PERRL. absent: Conjunctival injection, Scleral icterus Pupil Exam: NORMAL ACCOMODATION, PERRL - ENT Exam ENT Exam: Mucous Membranes Moist - Neck Exam Neck exam: Positive for: Full Rom, Normal Inspection. Negative for: Lymphadenopathy - Respiratory Exam Respiratory Exam: Clear to Auscultation Bilateral, NORMAL BREATHING PATTERN. absent: Accessory Muscle Use, Rales, Rhonchi, Wheezes, Respiratory Distress - Cardiovascular Exam Cardiovascular Exam: REGULAR RHYTHM, RRR, +S1, +S2. absent: Systolic Murmur - GI/Abdominal Exam GI & Abdominal Exam: Soft, Tenderness (throughout lower abdomen; RLQ>LLQ). absent: Distended, Firm Additional comments: diminished bowel sounds RLQ abdominal pain > LLQ - Rectal Exam Rectal Exam: Deferred - Extremities Exam Extremities exam: Positive for: normal capillary refill, normal inspection, pedal pulses present. Negative for: pedal edema - Neurological Exam Neurological exam: Alert, CN II-XII Intact, Oriented x3 - Psychiatric Exam Psychiatric exam: Normal Affect, Normal Mood - Skin Skin Exam: Dry, Intact, Normal Color, Warm Results - Vital Signs Recent Vital Signs: Last Vital Signs Temp 99 F 01/23/18 21:55 Pulse 71 01/23/18 21:55 Resp 18 01/23/18 21:55 BP 121/69 01/23/18 21:55 Pulse Ox 99 01/23/18 21:55 - Labs Result Diagrams: 01/24/18 11:34 01/24/18 11:34 Assessment & Plan - Assessment and Plan (Free Text) Assessment: 57yo female PMHx hypothyroid, migraine, UTI, HLD, TIA, cervical dysplasia presented to the ED with lower abdominal pain for 1 day. Patient admitted to med /surg for acute sigmoid diverticulitis Plan: -CT A/P: acute sigmoid diverticulitis with no evidence of free air/abscess; trace fluid in pelvis -CXR on admission unremarkable -f/u blood and urine cx -UA: small leuk esterase, negative nitrate, 5-10 WBC -amylase and lipase wnl -patient on Azactam, Vancomycin, Flagyl -continue hydration, NPO, and serial abdominal exams -recommend outpatient colonoscopy upon discharge in 4-6 weeks after inflammation resolves -monitor closely for signs of peritonitis and worsening sepsis ID will continue to follow Discussed with Dr. Mohini Durham PGY3 <Almas Rajan - Last Filed: 01/24/18 16:46> Meds - Medications Medications: Current Medications Atorvastatin Calcium (Lipitor) 20 mg PO DIN [place] Enoxaparin Sodium (Lovenox) 40 mg SC DAILY [facility] PRN Reason: Protocol Last Admin: 01/24/18 09:09 Dose: 40 mg Metronidazole (Flagyl) 500 mg in 100 mls @ 100 mls/hr IVPB Q8 [place] PRN Reason: Protocol Last Admin: 01/24/18 14:14 Dose: 100 mls/hr Lactated Ringer's (Lactated Ringer's) 1,000 mls @ 126 mls/hr IV .Q7H57M [place] Last Admin: 01/24/18 12:15 Dose: 126 mls/hr Aztreonam (Azactam 1 Gm) 100 mls @ 100 mls/hr IVPB Q8 [place] PRN Reason: Protocol Stop: 01/30/18 22:01 Last Admin: 01/24/18 14:14 Dose: 100 mls/hr Vancomycin HCl (Vancomycin 1gm) 1 gm in 250 mls @ 167 mls/hr IVPB Q12H [place] PRN Reason: Protocol Last Admin: 01/24/18 09:09 Dose: 167 mls/hr Levothyroxine Sodium (Synthroid) 50 mcg PO 0600 [place] Last Admin: 01/24/18 05:39 Dose: 50 mcg Morphine Sulfate (Morphine) 1 mg IVP Q3H PRN PRN Reason: Pain, moderate (4-7) Last Admin: 01/24/18 09:28 Dose: 1 mg Sumatriptan Succinate (Imitrex Tab) 100 mg PO Q12 PRN PRN Reason: migraines Last Admin: 01/24/18 11:27 Dose: 100 mg Results - Vital Signs Recent Vital Signs: Last Vital Signs Temp 98.8 F 01/24/18 14:00 Pulse 74 01/24/18 14:00 Resp 18 01/24/18 14:00 BP 133/75 01/24/18 14:00 Pulse Ox 100 01/24/18 14:00 - Labs Result Diagrams: 01/24/18 11:34 01/24/18 11:34 Labs: Laboratory Results - last 24 hr 01/24/18 01/24/18 11:34 11:34 WBC 7.5 D RBC 4.45 Hgb 12.1 Hct 35.6 L MCV 80.0 MCH 27.2 MCHC 34.0 RDW 14.2 Plt Count 199 MPV 9.0 Gran % 81.5 H Lymph % (Auto) 12.7 L [place] % (Auto) 4.6 Eos % (Auto) 1.1 L Baso % (Auto) 0.1 Gran # 6.14 Lymph # (Auto) 1.0 L [place] # (Auto) 0.4 Eos # (Auto) 0.1 Baso # (Auto) 0.01 Sodium 138 Potassium 3.7 Chloride 103 Carbon Dioxide 25 Anion Gap 13 BUN 11 Creatinine 0.8 Est GFR ( Amer) > 60 Est GFR (Non-Af Amer) > 60 Random Glucose 73 Calcium 8.6 Total Bilirubin 0.5 AST 57 H D ALT 66 H Alkaline Phosphatase 144 H Total Protein 6.6 Albumin 3.5 Globulin 3.1 Albumin/Globulin Ratio 1.2 Assessment & Plan - Assessment and Plan (Free Text) Plan: Infectious Diseases Attending Physician Addendum Patient seen and examined, discussed with phlebotomist medical lab assistant. I have reviewed the pertinent clinical information for the patient, including history of present illness, medical, personal and social histories, lab results and imaging findings. I agree with the above findings, assessment and plan. In addition, we have started Vancomycin, Azactam and Flagyl for acute sigmoid diverticulitis. Will follow up blood cx and monitor clinically. Follow up further plans of Surgery.
[2018-01-24] MEDS: Enoxaparin 40 mg Syringe SC SCH (09:09)
[2018-01-24] MEDS: Vancomycin 1gm in NS 250ml 1 GM/250 ML BAG IVPB SCH ×2 (09:09→17:42)
--- NOTE | 2018-01-24 09:36 | CON ---
Copied To: Khoi Roe DO Attending MD: Khoi Roe DO DATE: 01/24/2018 HISTORY OF PRESENT ILLNESS: I saw Ms. Eugene this morning. She is a 57-year-old black female with past medical history of hypothyroidism, migraines, and hysterectomy, admitted with complaints of abdominal pain . The patient also relates nausea but denies hematemesis or rectal bleeding. Last colonoscopy was about four years ago and was told that she has no polyps, no internal hemorrhoids, no diverticulosis. Patient had a CAT scan done in the Emergency Room. PHYSICAL EXAMINATION: VITAL SIGNS: I reviewed this patient's vital signs. HEENT: Noncontributory. LUNGS: Clear to auscultation. HEART: Regular rhythm. ABDOMEN: Mildly distended. She has irregular bowel sounds. Palpation of the right upper and right lower quadrant noncontributory. She is experiencing tenderness on periumbilical palpation extending down to left lower quadrant. Palpation of the left paraumbilical and left lower quadrant elicits severe pain level, 8-9/10. DATA: Reviewed this patient's laboratory data, significant for white count of 11,000. Chemistry significant for mild elevation of alkaline phosphatase with AST and ALT ratio of 44/55. Abdominal and pelvic CT from yesterday significant for mild atelectasis, hiatal hernia, status post cholecystectomy status. reveals evidence of sigmoid diverticulitis with possible involvement of the distal descending colon. There does not appear to be any bowel obstruction. OVERALL ASSESSMENT: This is a 57-year-old black female with first episode of diverticulitis, currently on lactated Ringers and antibiotics consisting of aztreonam and metronidazole, which appears to be adequate. The patient is currently on n.p.o. diet. Khoi Roe DO
[2018-01-24] MEDS ORDERED: levoFLOXacin 500 mg in D5W 500 MG/100 ML BAG IVPB SCH (10:00)
--- NOTE | 2018-01-24 11:21 | CP.PCM.PN ---
<Radha Carbajal - Last Filed: 01/24/18 11:13> Subjective - Date & Time of Evaluation Date of Evaluation: 01/24/18 Time of Evaluation: 11:14 - Subjective Subjective: General Surgery Dr. Cardenas Pt seen and examined @bedside. No acute events overnight. Pt reports improved abd pain. Pt denies F/C, N/V. Objective - Vital Signs/Intake and Output Vital Signs (last 24 hours): Temp Pulse Resp BP Pulse Ox 98.5 F 65 20 104/54 L 99 01/24/18 06:00 01/24/18 06:00 01/24/18 06:00 01/24/18 06:00 01/24/18 06:00 Intake and Output: 01/24/18 01/24/18 06:59 18:59 Intake Total 0 Balance 0 - Medications Medications: Current Medications Atorvastatin Calcium (Lipitor) 20 mg PO DIN [place] Enoxaparin Sodium (Lovenox) 40 mg SC DAILY [place] PRN Reason: Protocol Last Admin: 01/24/18 09:09 Dose: 40 mg Metronidazole (Flagyl) 500 mg in 100 mls @ 100 mls/hr IVPB Q8 [place] PRN Reason: Protocol Last Admin: 01/24/18 06:19 Dose: 100 mls/hr Lactated Ringer's (Lactated Ringer's) 1,000 mls @ 126 mls/hr IV .Q7H57M [place] Last Admin: 01/23/18 18:43 Dose: 126 mls/hr Aztreonam (Azactam 1 Gm) 100 mls @ 100 mls/hr IVPB Q8 [place] PRN Reason: Protocol Stop: 01/30/18 22:01 Last Admin: 01/24/18 05:38 Dose: 100 mls/hr Vancomycin HCl (Vancomycin 1gm) 1 gm in 250 mls @ 167 mls/hr IVPB Q12H [place] PRN Reason: Protocol Last Admin: 01/24/18 09:09 Dose: 167 mls/hr Levothyroxine Sodium (Synthroid) 50 mcg PO 0600 [facility] Last Admin: 01/24/18 05:39 Dose: 50 mcg Morphine Sulfate (Morphine) 1 mg IVP Q3H PRN PRN Reason: Pain, moderate (4-7) Last Admin: 01/24/18 09:28 Dose: 1 mg Sumatriptan Succinate (Imitrex Tab) 100 mg PO Q12 PRN PRN Reason: migraines - Labs Labs: PT 14.9 SECONDS (9.4-12.5) H 01/23/18 14:16 INR 1.30 01/23/18 14:16 APTT 34.7 Seconds (25.1-36.5) 01/23/18 14:16 - Constitutional Appears: Non-toxic, No Acute Distress - Head Exam Head Exam: NORMAL INSPECTION - Eye Exam Eye Exam: Normal appearance - ENT Exam ENT Exam: Mucous Membranes Moist - Respiratory Exam Respiratory Exam: NORMAL BREATHING PATTERN. absent: Accessory Muscle Use, Respiratory Distress - Cardiovascular Exam Cardiovascular Exam: REGULAR RHYTHM. absent: Bradycardia, Tachycardia - GI/Abdominal Exam GI & Abdominal Exam: Soft. absent: Distended, Firm, Guarding, Rigid, Tenderness , Rebound - Extremities Exam Extremities Exam: Normal Inspection - Neurological Exam Neurological Exam: Alert, Awake, Oriented x3 - Psychiatric Exam Psychiatric exam: Normal Affect, Normal Mood - Skin Skin Exam: Dry, Intact, Normal Color, Warm Assessment and Plan - Assessment and Plan (Free Text) Assessment: 57 y/o F w/ diverticulitis - cont IV abx - maintain NPO/IVF - cont pain management - f/u GI recs - encourage OOB to chair/Amb Pt discussed w/ Dr. Ronald Carbajal DO PGY3 <Cher Cardenas - Last Filed: 01/24/18 17:31> Objective - Vital Signs/Intake and Output Vital Signs (last 24 hours): Temp Pulse Resp BP Pulse Ox 98.8 F 74 18 133/75 100 01/24/18 14:00 01/24/18 14:00 01/24/18 14:00 01/24/18 14:00 01/24/18 14:00 Intake and Output: 01/24/18 01/24/18 06:59 18:59 Intake Total 0 Balance 0 - Medications Medications: Current Medications Atorvastatin Calcium (Lipitor) 20 mg PO DIN [place] Enoxaparin Sodium (Lovenox) 40 mg SC DAILY [place] PRN Reason: Protocol Last Admin: 01/24/18 09:09 Dose: 40 mg Metronidazole (Flagyl) 500 mg in 100 mls @ 100 mls/hr IVPB Q8 [place] PRN Reason: Protocol Last Admin: 01/24/18 14:14 Dose: 100 mls/hr Lactated Ringer's (Lactated Ringer's) 1,000 mls @ 126 mls/hr IV .Q7H57M [place] Last Admin: 01/24/18 12:15 Dose: 126 mls/hr Aztreonam (Azactam 1 Gm) 100 mls @ 100 mls/hr IVPB Q8 [place] PRN Reason: Protocol Stop: 01/30/18 22:01 Last Admin: 01/24/18 14:14 Dose: 100 mls/hr Vancomycin HCl (Vancomycin 1gm) 1 gm in 250 mls @ 167 mls/hr IVPB Q12H [place] PRN Reason: Protocol Last Admin: 01/24/18 09:09 Dose: 167 mls/hr Levothyroxine Sodium (Synthroid) 50 mcg PO 0600 [place] Last Admin: 01/24/18 05:39 Dose: 50 mcg Morphine Sulfate (Morphine) 1 mg IVP Q3H PRN PRN Reason: Pain, moderate (4-7) Last Admin: 01/24/18 09:28 Dose: 1 mg Sumatriptan Succinate (Imitrex Tab) 100 mg PO Q12 PRN PRN Reason: migraines Last Admin: 01/24/18 11:27 Dose: 100 mg - Labs Labs: 01/24/18 11:34 01/24/18 11:34 PT 14.9 SECONDS (9.4-12.5) H 01/23/18 14:16 INR 1.30 01/23/18 14:16 APTT 34.7 Seconds (25.1-36.5) 01/23/18 14:16 Assessment and Plan - Assessment and Plan (Free Text) Plan: Recommendations per H+P consult note
[2018-01-24 11:39] LABS: BASO # 0.01 K/mm3 (0.0-2.0); BASO % 0.1 % (0.0-3.0); EOS # 0.1 (0.0-0.7); EOS % 1.1 % (1.5-5.0); GRAN # 6.14 (1.4-6.5); GRAN % 81.5 % (50.0-68.0); HEMOGLOBIN 12.1 g/dL (12.0-16.0); LYMPH % 12.7 % (22.0-35.0); MEAN CORPUSCULAR HEMOGLOBIN 27.2 pg (25.0-35.0); MONO # 0.4 (0.1-0.6); MONO % 4.6 % (1.0-6.0); RBC 4.45 10^6/uL (3.5-6.1); RED CELL DISTRIBUTION WIDTH 14.2 % (11.5-14.5); WHITE BLOOD COUNT 7.5 10^3/ul (4.5-11.0)
[2018-01-24 11:56] LABS: ALB/GLOB RATIO 1.2 (1.1-1.8); ALBUMIN 3.5 g/dL (3.0-4.8); ALT/SGPT 66 U/L (7-56); AST/SGOT 57 U/L (14-36); BLOOD UREA NITROGEN 11 mg/dL (7-21); CALCIUM 8.6 mg/dL (8.4-10.5); GFR NON-AFRICAN AMERICAN > 60
--- NOTE | 2018-01-24 12:09 | CP.PCM.PN ---
<Tung Eugene - Last Filed: 01/24/18 12:42> Subjective - Date & Time of Evaluation Date of Evaluation: 01/24/18 Time of Evaluation: 07:00 - Subjective Subjective: Pt seen and examined this morning at bedside. Pt reports abdominal pain. She denies feeling feverish. Pt has not yet had a bowel movement. Objective - Vital Signs/Intake and Output Vital Signs (last 24 hours): Temp Pulse Resp BP Pulse Ox 98.5 F 65 20 104/54 L 99 01/24/18 06:00 01/24/18 06:00 01/24/18 06:00 01/24/18 06:00 01/24/18 06:00 Intake and Output: 01/24/18 01/24/18 06:59 18:59 Intake Total 0 Balance 0 - Medications Medications: Current Medications Atorvastatin Calcium (Lipitor) 20 mg PO DIN [place] Enoxaparin Sodium (Lovenox) 40 mg SC DAILY [place] PRN Reason: Protocol Last Admin: 01/24/18 09:09 Dose: 40 mg Metronidazole (Flagyl) 500 mg in 100 mls @ 100 mls/hr IVPB Q8 [place] PRN Reason: Protocol Last Admin: 01/24/18 06:19 Dose: 100 mls/hr Lactated Ringer's (Lactated Ringer's) 1,000 mls @ 126 mls/hr IV .Q7H57M [facility] Last Admin: 01/23/18 18:43 Dose: 126 mls/hr Aztreonam (Azactam 1 Gm) 100 mls @ 100 mls/hr IVPB Q8 [place] PRN Reason: Protocol Stop: 01/30/18 22:01 Last Admin: 01/24/18 05:38 Dose: 100 mls/hr Vancomycin HCl (Vancomycin 1gm) 1 gm in 250 mls @ 167 mls/hr IVPB Q12H [place] PRN Reason: Protocol Last Admin: 01/24/18 09:09 Dose: 167 mls/hr Levothyroxine Sodium (Synthroid) 50 mcg PO 0600 [facility] Last Admin: 01/24/18 05:39 Dose: 50 mcg Morphine Sulfate (Morphine) 1 mg IVP Q3H PRN PRN Reason: Pain, moderate (4-7) Last Admin: 01/24/18 09:28 Dose: 1 mg Sumatriptan Succinate (Imitrex Tab) 100 mg PO Q12 PRN PRN Reason: migraines Last Admin: 01/24/18 11:27 Dose: 100 mg - Labs Labs: 01/24/18 11:34 01/24/18 11:34 PT 14.9 SECONDS (9.4-12.5) H 01/23/18 14:16 INR 1.30 01/23/18 14:16 APTT 34.7 Seconds (25.1-36.5) 01/23/18 14:16 - Constitutional Appears: No Acute Distress - Head Exam Head Exam: ATRAUMATIC, NORMOCEPHALIC - Eye Exam Eye Exam: EOMI - ENT Exam ENT Exam: Mucous Membranes Moist - Neck Exam Neck Exam: Full ROM - Respiratory Exam Respiratory Exam: Clear to Ausculation Bilateral, NORMAL BREATHING PATTERN. absent: Accessory Muscle Use, Rhonchi, Wheezes, Respiratory Distress, Stridor - Cardiovascular Exam Cardiovascular Exam: REGULAR RHYTHM, RRR, +S1, +S2. absent: Bradycardia, Tachycardia, Diastolic murmur, Irregular Rhythm, JVD - GI/Abdominal Exam GI & Abdominal Exam: Soft, Tenderness (LLQ>RLQ tender to palpation ), Normal Bowel Sounds. absent: Distended, Rebound - Back Exam Back Exam: Full ROM. absent: CVA tenderness (L), CVA tenderness (R) - Neurological Exam Neurological Exam: Alert, Awake, Oriented x3 - Psychiatric Exam Psychiatric exam: Normal Affect, Normal Mood - Skin Skin Exam: Dry, Normal Color, Warm Assessment and Plan - Assessment and Plan (Free Text) Assessment: Pt is a 57 yo female with a PMH of hypothyroid, migraine headaches, UTI's, HLD who presents with "excruciating right sided abdominal pain"/ acute sigmoid diverticulitis. Plan: Acute Sigmoid Diverticulitis - CT: acute sigmoid diverticulitis - Leukocytosis has improved, WBC 7.5 - Clear Liquid Diet, advance as tolerated - Blood cultures: collected, results pending - Urine cultures: collected, results pending - surgery following - GI following - Continue LR@126 - continue aztreonam 1 gram q8h, flagyl 500mg q8h, continue vanc 1 gram q12h - continue morphine 1mg q3h prn, zofran 4mg q6h prn Mild Transaminitis - AST 57, ALT 66, Alk Phos 144 - will continue to monitor Migraine Headache - continue sumatriptan, PRN HLD - continue lipitor Hypothyroid - continue levothyroxine Ppx - continue lovenox - continue pantoprazole Pt seen, examined, and assessment/ plan discussed with Dr Monge. Tung Eugene PGY1 Internal Medicine Resident <Elliot Monge - Last Filed: 01/24/18 13:27> Objective - Vital Signs/Intake and Output Vital Signs (last 24 hours): Temp Pulse Resp BP Pulse Ox 98.5 F 65 20 104/54 L 99 01/24/18 06:00 01/24/18 06:00 01/24/18 06:00 01/24/18 06:00 01/24/18 06:00 Intake and Output: 01/24/18 01/24/18 06:59 18:59 Intake Total 0 Balance 0 - Medications Medications: Current Medications Atorvastatin Calcium (Lipitor) 20 mg PO DIN [place] Enoxaparin Sodium (Lovenox) 40 mg SC DAILY [place] PRN Reason: Protocol Last Admin: 01/24/18 09:09 Dose: 40 mg Metronidazole (Flagyl) 500 mg in 100 mls @ 100 mls/hr IVPB Q8 [place] PRN Reason: Protocol Last Admin: 01/24/18 06:19 Dose: 100 mls/hr Lactated Ringer's (Lactated Ringer's) 1,000 mls @ 126 mls/hr IV .Q7H57M [place] Last Admin: 01/24/18 12:15 Dose: 126 mls/hr Aztreonam (Azactam 1 Gm) 100 mls @ 100 mls/hr IVPB Q8 [place] PRN Reason: Protocol Stop: 01/30/18 22:01 Last Admin: 01/24/18 05:38 Dose: 100 mls/hr Vancomycin HCl (Vancomycin 1gm) 1 gm in 250 mls @ 167 mls/hr IVPB Q12H [place] PRN Reason: Protocol Last Admin: 01/24/18 09:09 Dose: 167 mls/hr Levothyroxine Sodium (Synthroid) 50 mcg PO 0600 [place] Last Admin: 01/24/18 05:39 Dose: 50 mcg Morphine Sulfate (Morphine) 1 mg IVP Q3H PRN PRN Reason: Pain, moderate (4-7) Last Admin: 01/24/18 09:28 Dose: 1 mg Sumatriptan Succinate (Imitrex Tab) 100 mg PO Q12 PRN PRN Reason: migraines Last Admin: 01/24/18 11:27 Dose: 100 mg - Labs Labs: 01/24/18 11:34 01/24/18 11:34 PT 14.9 SECONDS (9.4-12.5) H 01/23/18 14:16 INR 1.30 01/23/18 14:16 APTT 34.7 Seconds (25.1-36.5) 01/23/18 14:16 Attending/Attestation - Attestation I have personally seen and examined this patient.: Yes I have fully participated in the care of the patient.: Yes I have reviewed all pertinent clinical information, including history, physical exam and plan: Yes Notes (Text): 01/24/18 13:27 Medical record note made by the resident after discussion with my direction and input after the patient was personally seen and examined by me. I have reviewed the chart and agree that the record accurately reflects by personal performance of the history, physical exam, data review, and medical decision-making, in the course for the patient. I have also personally directed the plan of care.
[2018-01-24] MEDS: Lactated Ringer's 1,000 ML IV SCH (12:15)
--- NOTE | 2018-01-25 05:22 | CP.PCM.PN ---
Subjective - Date & Time of Evaluation Date of Evaluation: 01/25/18 Time of Evaluation: 05:15 - Subjective Subjective: Pt seen and examined at bedside this morning. Pt reports tolerating CLD well, with some mild nausea. She reports LLQ abdominal pain which is improving. Spoke with nurse, pt woke up with migraine which was treated with imitrex, pt states migraine is completely gone. Objective - Vital Signs/Intake and Output Vital Signs (last 24 hours): Temp Pulse Resp BP Pulse Ox 98.8 F 65 18 111/59 L 98 01/24/18 22:21 01/24/18 22:21 01/24/18 22:21 01/24/18 22:21 01/24/18 22:21 - Medications Medications: Current Medications Atorvastatin Calcium (Lipitor) 20 mg PO DIN [facility] Last Admin: 01/24/18 17:42 Dose: 20 mg Enoxaparin Sodium (Lovenox) 40 mg SC DAILY [facility] PRN Reason: Protocol Last Admin: 01/24/18 09:09 Dose: 40 mg Metronidazole (Flagyl) 500 mg in 100 mls @ 100 mls/hr IVPB Q8 [place] PRN Reason: Protocol Last Admin: 01/24/18 22:23 Dose: 100 mls/hr Lactated Ringer's (Lactated Ringer's) 1,000 mls @ 126 mls/hr IV .Q7H57M [facility] Last Admin: 01/24/18 12:15 Dose: 126 mls/hr Aztreonam (Azactam 1 Gm) 100 mls @ 100 mls/hr IVPB Q8 [place] PRN Reason: Protocol Stop: 01/30/18 22:01 Last Admin: 01/24/18 21:44 Dose: 100 mls/hr Vancomycin HCl (Vancomycin 1gm) 1 gm in 250 mls @ 167 mls/hr IVPB Q12H [place] PRN Reason: Protocol Last Admin: 01/24/18 17:42 Dose: 167 mls/hr Levothyroxine Sodium (Synthroid) 50 mcg PO 0600 [facility] Last Admin: 01/24/18 05:39 Dose: 50 mcg Morphine Sulfate (Morphine) 1 mg IVP Q3H PRN PRN Reason: Pain, moderate (4-7) Last Admin: 01/24/18 09:28 Dose: 1 mg Sumatriptan Succinate (Imitrex Tab) 100 mg PO Q12 PRN PRN Reason: migraines Last Admin: 01/25/18 01:45 Dose: 100 mg - Labs Labs: 01/24/18 11:34 01/24/18 11:34 PT 14.9 SECONDS (9.4-12.5) H 01/23/18 14:16 INR 1.30 01/23/18 14:16 APTT 34.7 Seconds (25.1-36.5) 01/23/18 14:16 - Constitutional Appears: No Acute Distress - Head Exam Head Exam: ATRAUMATIC, NORMOCEPHALIC - Eye Exam Eye Exam: EOMI - ENT Exam ENT Exam: Mucous Membranes Moist - Neck Exam Neck Exam: Full ROM - Respiratory Exam Respiratory Exam: Clear to Ausculation Bilateral, NORMAL BREATHING PATTERN. absent: Accessory Muscle Use, Wheezes, Respiratory Distress, Stridor - Cardiovascular Exam Cardiovascular Exam: REGULAR RHYTHM, RRR, +S1, +S2. absent: JVD - GI/Abdominal Exam GI & Abdominal Exam: Soft, Tenderness, Normal Bowel Sounds. absent: Distended, Firm, Rigid Additional comments: LLQ pain to palpation, improving from yesterday Assessment and Plan - Assessment and Plan (Free Text) Assessment: Pt is a 57 yo female with a PMH of hypothyroid, migraine headaches, UTI's, HLD who presents with "excruciating right sided abdominal pain"/ acute sigmoid diverticulitis.
[2018-01-25] MEDS: Aztreonam 1 Gm in NS 100mL 100 ML IVPB SCH ×2 (05:48→13:29)
[2018-01-25] MEDS: Levothyroxine 50 MCG TAB PO SCH (05:49)
[2018-01-25] MEDS: metroNIDAZOLE IV 500 mg/100 ml 500 MG/100 ML BAG IVPB SCH ×2 (06:31→15:33)
[2018-01-25 06:45] LABS: BASO # 0.01 K/mm3 (0.0-2.0); BASO % 0.2 % (0.0-3.0); EOS # 0.1 (0.0-0.7); EOS % 1.7 % (1.5-5.0); GRAN # 4.4 (1.4-6.5); GRAN % 73.3 % (50.0-68.0); HEMOGLOBIN 12.2 g/dL (12.0-16.0); LYMPH # 1.2 (1.2-3.4); LYMPH % 19.8 % (22.0-35.0); MEAN CELL VOLUME 79.8 fl (80.0-105.0); MEAN CORPUSCULAR HEMOGLOBIN 26.8 pg (25.0-35.0); MEAN CORPUSCULAR HGB CONC 33.5 g/dl (31.0-37.0); MEAN PLATELET VOLUME 9.1 fl (7.0-11.0); MONO # 0.3 (0.1-0.6); RBC 4.56 10^6/uL (3.5-6.1); RED CELL DISTRIBUTION WIDTH 14.1 % (11.5-14.5)
[2018-01-25 07:34] LABS: ALB/GLOB RATIO 1.2 (1.1-1.8); ALBUMIN 3.5 g/dL (3.0-4.8); ALT/SGPT 60 U/L (7-56); AST/SGOT 46 U/L (14-36); BLOOD UREA NITROGEN 8 mg/dL (7-21); CALCIUM 10.6 mg/dL (8.4-10.5); GFR NON-AFRICAN AMERICAN > 60
--- NOTE | 2018-01-25 07:37 | CP.PCM.PN ---
<MarvaAshely - Last Filed: 01/25/18 15:11> Subjective - Date & Time of Evaluation Date of Evaluation: 01/25/18 Time of Evaluation: 09:00 - Subjective Subjective: [id number] ID Progress note for Dr. Rajan Patient seen and examined OOB to chair. Nursing reported no acute events overnight. Patient was afebrile and reported feeling much better this AM and was in good spirits. She reports passing gas and had a soft BM earlier today. She was able to tolerate liquid diet. Reported her abdominal pain was a 3-4/10 and much improved. She denied any more pressure in her abdomen when she would stand up or sit down but continues to have some mild discomfort in her lower abdomen bilaterally. She denied any acute complaints of fever, chills, dizziness , chest pain, palpitations, SOB, cough, nausea, vomiting, bowel/bladder complaints, pain/swelling in her legs b/l. Patient is ambulating around the room and eager to go home. Objective - Vital Signs/Intake and Output Vital Signs (last 24 hours): Temp Pulse Resp BP Pulse Ox 98.8 F 65 18 111/59 L 98 01/24/18 22:21 01/24/18 22:21 01/24/18 22:21 01/24/18 22:21 01/24/18 22:21 Intake and Output: 01/25/18 01/25/18 06:59 18:59 Intake Total 360 Balance 360 - Medications Medications: Current Medications Atorvastatin Calcium (Lipitor) 20 mg PO DIN [facility] Last Admin: 01/24/18 17:42 Dose: 20 mg Enoxaparin Sodium (Lovenox) 40 mg SC DAILY [facility] PRN Reason: Protocol Last Admin: 01/24/18 09:09 Dose: 40 mg Metronidazole (Flagyl) 500 mg in 100 mls @ 100 mls/hr IVPB Q8 [facility] PRN Reason: Protocol Last Admin: 01/25/18 06:31 Dose: 100 mls/hr Lactated Ringer's (Lactated Ringer's) 1,000 mls @ 126 mls/hr IV .Q7H57M [facility] Last Admin: 01/24/18 12:15 Dose: 126 mls/hr Aztreonam (Azactam 1 Gm) 100 mls @ 100 mls/hr IVPB Q8 [facility] PRN Reason: Protocol Stop: 01/30/18 22:01 Last Admin: 01/25/18 05:48 Dose: 100 mls/hr Vancomycin HCl (Vancomycin 1gm) 1 gm in 250 mls @ 167 mls/hr IVPB Q12H [place] PRN Reason: Protocol Last Admin: 01/24/18 17:42 Dose: 167 mls/hr Levothyroxine Sodium (Synthroid) 50 mcg PO 0600 [place] Last Admin: 01/25/18 05:49 Dose: 50 mcg Morphine Sulfate (Morphine) 1 mg IVP Q3H PRN PRN Reason: Pain, moderate (4-7) Last Admin: 01/24/18 09:28 Dose: 1 mg Sumatriptan Succinate (Imitrex Tab) 100 mg PO Q12 PRN PRN Reason: migraines Last Admin: 01/25/18 01:45 Dose: 100 mg - Labs Labs: 01/25/18 06:15 01/25/18 06:15 PT 14.9 SECONDS (9.4-12.5) H 01/23/18 14:16 INR 1.30 01/23/18 14:16 APTT 34.7 Seconds (25.1-36.5) 01/23/18 14:16 - Constitutional Appears: Non-toxic, No Acute Distress - Head Exam Head Exam: ATRAUMATIC, NORMAL INSPECTION, NORMOCEPHALIC - Eye Exam Eye Exam: EOMI, Normal appearance. absent: Conjunctival injection, Scleral icterus - ENT Exam ENT Exam: Mucous Membranes Moist - Neck Exam Neck Exam: Full ROM, Normal Inspection - Respiratory Exam Respiratory Exam: Clear to Ausculation Bilateral, NORMAL BREATHING PATTERN. absent: Accessory Muscle Use, Rales, Rhonchi, Wheezes - Cardiovascular Exam Cardiovascular Exam: REGULAR RHYTHM, +S1, +S2 - GI/Abdominal Exam GI & Abdominal Exam: Soft, Tenderness (mild to palpation L > R today) - Rectal Exam Rectal Exam: Deferred - Extremities Exam Extremities Exam: Normal Inspection. absent: Pedal Edema - Neurological Exam Neurological Exam: Alert, Awake, Oriented x3 - Psychiatric Exam Psychiatric exam: Normal Affect, Normal Mood - Skin Skin Exam: Dry, Intact, Normal Color, Warm Assessment and Plan - Assessment and Plan (Free Text) Assessment: 57yo female PMHx hypothyroid, migraine, UTI, HLD, TIA, cervical dysplasia presented to the ED with lower abdominal pain for 1 day. Patient admitted to med /surg for acute sigmoid diverticulitis Plan: -CT A/P: acute sigmoid diverticulitis with no evidence of free air/abscess; trace fluid in pelvis -CXR on admission unremarkable -blood prelim negative x 2 -urine cx gram + cocci -UA: small leuk esterase, negative nitrate, 5-10 WBC -amylase and lipase wnl -patient on Azactam, Flagyl -continue hydration, ADAT, and serial abdominal exams -recommend outpatient colonoscopy upon discharge in 4-6 weeks after inflammation resolves -upon discharge patient should be d/c on bactrim and flagyl Discussed with Dr. Mohini Durham PGY3 <Almas Rajan - Last Filed: 01/25/18 20:44> Objective - Vital Signs/Intake and Output Vital Signs (last 24 hours): Temp Pulse Resp BP Pulse Ox 98.2 F 73 20 127/76 100 01/25/18 14:00 01/25/18 14:00 01/25/18 14:00 01/25/18 14:00 01/25/18 14:00 - Medications Medications: Current Medications Atorvastatin Calcium (Lipitor) 20 mg PO DIN [facility] Last Admin: 01/25/18 17:51 Dose: 20 mg Enoxaparin Sodium (Lovenox) 40 mg SC DAILY [facility] PRN Reason: Protocol Last Admin: 01/25/18 09:18 Dose: 40 mg Metronidazole (Flagyl) 500 mg in 100 mls @ 100 mls/hr IVPB Q8 [facility] PRN Reason: Protocol Last Admin: 01/25/18 15:33 Dose: 100 mls/hr Lactated Ringer's (Lactated Ringer's) 1,000 mls @ 126 mls/hr IV .Q7H57M [facility] Last Admin: 01/25/18 17:52 Dose: 126 mls/hr Aztreonam (Azactam 1 Gm) 100 mls @ 100 mls/hr IVPB Q8 [facility] PRN Reason: Protocol Stop: 01/30/18 22:01 Last Admin: 01/25/18 13:29 Dose: 100 mls/hr Levothyroxine Sodium (Synthroid) 50 mcg PO 0600 [facility] Last Admin: 01/25/18 05:49 Dose: 50 mcg Sumatriptan Succinate (Imitrex Tab) 100 mg PO Q12 PRN PRN Reason: migraines Last Admin: 01/25/18 16:15 Dose: 100 mg - Labs Labs: 01/25/18 06:15 01/25/18 06:15 PT 14.9 SECONDS (9.4-12.5) H 01/23/18 14:16 INR 1.30 01/23/18 14:16 APTT 34.7 Seconds (25.1-36.5) 01/23/18 14:16 Assessment and Plan - Assessment and Plan (Free Text) Plan: Infectious Diseases Attending Physician Addendum Patient seen and examined, discussed with medical claims examiner. I have reviewed the pertinent clinical information for the patient, including history of present illness, medical, personal and social histories, lab results and imaging findings. I agree with the above findings, assessment and plan. In addition, we will continue Azactam and Flagyl for acute sigmoid diverticulitis. Blood cx are negative. Patient has improved clinically. If she is able to tolerate full solid diet, may switch to PO antibiotics.
[2018-01-25] MEDS: Vancomycin 1gm in NS 250ml 1 GM/250 ML BAG IVPB SCH (08:02)
[2018-01-25] MEDS: Enoxaparin 40 mg Syringe SC SCH (09:18)
[2018-01-25] MEDS: Lactated Ringer's 1,000 ML IV SCH ×3 (09:19→17:52)
--- NOTE | 2018-01-25 11:00 | PN ---
DATE: 01/25/2018 SUBJECTIVE: I examined Ms. Eugene this morning. She is a 57-year-old black female admitted with diagnosis of severe abdominal pain secondary to diverticulitis involving the distal descending colon and sigmoid. The patient was making progress on current therapeutic regimen, which consists of the antibiotics in the form of metronidazole and aztreonam as per the house staff. vancomycin as well. The patient reiterated at bedside this morning that the pain level is down roughly 4 or 5 out of 10. There has been no rectal bleeding or hematemesis. She was handling small volume of clear liquids with no problems. PHYSICAL EXAMINATION: VITAL SIGNS: I reviewed this patient's vital signs. HEENT: Noncontributory. LUNGS: Clear to auscultation. HEART: Regular rhythm. ABDOMEN: Still mildly distended. There is still fullness noted in the area of the left paraumbilical and left lower quadrant. Palpation on the periumbilical area still elicits discomfort in all four quadrants. LABORATORY DATA: I reviewed the respective reports of , Dr. Eugene, Dr. Rajan as well as Dr. Cardenas. OVERALL ASSESSMENT: This is a 57-year-old black female with complaints of abdominal pain secondary to sigmoid diverticulitis. The patient currently is doing well on current regimen, we will continue such. Advise maintenance of the patient on clear liquid diet for at least another day or so. She will be followed up by the respective consultants later on this morning. Khoi Roe DO
[2018-01-25 15:32] VITALS: BP 127/76; PULSE 73; RESP 20; TEMP 98.2; O2SAT 100
--- NOTE | 2018-01-25 16:49 | CP.PCM.DIS ---
<Tung Eugene Malik - Last Filed: 01/25/18 17:12> Provider - Provider Date of Admission: 01/23/18 16:49 Attending physician: Elliot Monge MD Primary care physician: Fanta Kate MD Consults: Surgery GI ID Time Spent in preparation of Discharge (in minutes): 45 Diagnosis - Discharge Diagnosis (1) Diverticulitis Status: Acute Priority: High (2) Hypothyroid Status: Chronic Priority: Low (3) Migraine Status: Chronic Priority: Medium (4) HLD (hyperlipidemia) Status: Chronic Priority: Low Hospital Course - Lab Results Lab Results: Most Recent Lab Values WBC 6.0 10^3/ul (4.5-11.0) 01/25/18 06:15 RBC 4.56 10^6/uL (3.5-6.1) 01/25/18 06:15 Hgb 12.2 g/dL (12.0-16.0) 01/25/18 06:15 Hct 36.4 % (36.0-48.0) 01/25/18 06:15 MCV 79.8 fl (80.0-105.0) L 01/25/18 06:15 MCH 26.8 pg (25.0-35.0) 01/25/18 06:15 MCHC 33.5 g/dl (31.0-37.0) 01/25/18 06:15 RDW 14.1 % (11.5-14.5) 01/25/18 06:15 Plt Count 217 10^3/uL (120.0-450.0) 01/25/18 06:15 MPV 9.1 fl (7.0-11.0) 01/25/18 06:15 Gran % 73.3 % (50.0-68.0) H 01/25/18 06:15 Lymph % (Auto) 19.8 % (22.0-35.0) L 01/25/18 06:15 [place] % (Auto) 5.0 % (1.0-6.0) 01/25/18 06:15 Eos % (Auto) 1.7 % (1.5-5.0) 01/25/18 06:15 Baso % (Auto) 0.2 % (0.0-3.0) 01/25/18 06:15 Gran # 4.40 (1.4-6.5) 01/25/18 06:15 Lymph # (Auto) 1.2 (1.2-3.4) 01/25/18 06:15 [place] # (Auto) 0.3 (0.1-0.6) 01/25/18 06:15 Eos # (Auto) 0.1 (0.0-0.7) 01/25/18 06:15 Baso # (Auto) 0.01 K/mm3 (0.0-2.0) 01/25/18 06:15 PT 14.9 SECONDS (9.4-12.5) H 01/23/18 14:16 INR 1.30 01/23/18 14:16 APTT 34.7 Seconds (25.1-36.5) 01/23/18 14:16 pO2 20 mm/Hg (30-55) L 01/23/18 14:16 VBG pH 7.37 (7.32-7.43) 01/23/18 14:16 VBG pCO2 58.0 (40-60) 01/23/18 14:16 VBG HCO3 33.5 mmol/l (21-28) H 01/23/18 14:16 VBG Total CO2 35.3 mmol.L (22-28) H 01/23/18 14:16 VBG O2 Sat (Calc) 35.8 % (40-65) L 01/23/18 14:16 VBG Base Excess 6.4 mmol/L (0.0-2.0) H 01/23/18 14:16 VBG Potassium 3.9 mmol/L (3.6-5.2) 01/23/18 14:16 Sodium 139.0 mmol/L (132-148) 01/23/18 14:16 Chloride 102.0 mmol/L (98-107) 01/23/18 14:16 Glucose 85 mg/dl (65-105) 01/23/18 14:16 Lactate 1.3 mmol/L (0.7-2.1) 01/23/18 14:16 FiO2 21.0 % 01/23/18 14:16 Sodium 143 mmol/L (132-148) 01/25/18 06:15 Potassium 4.1 mmol/L (3.6-5.0) 01/25/18 06:15 Chloride 108 mmol/L (98-107) H 01/25/18 06:15 Carbon Dioxide 28 mmol/L (21-33) 01/25/18 06:15 Anion Gap 12 (10-20) 01/25/18 06:15 BUN 8 mg/dL (7-21) 01/25/18 06:15 Creatinine 0.8 mg/dl (0.7-1.2) 01/25/18 06:15 Est GFR ( Amer) > 60 01/25/18 06:15 Est GFR (Non-Af Amer) > 60 01/25/18 06:15 POC Glucose (mg/dL) 61 mg/dL (65-110) L 01/23/18 14:36 Random Glucose 95 mg/dL (70-110) 01/25/18 06:15 Calcium 10.6 mg/dL (8.4-10.5) H 01/25/18 06:15 Phosphorus 3.2 mg/dL (2.5-4.5) 01/25/18 06:15 Magnesium 2.1 mg/dL (1.7-2.2) 01/25/18 06:15 Total Bilirubin 0.4 mg/dL (0.2-1.3) 01/25/18 06:15 AST 46 U/L (14-36) H 01/25/18 06:15 ALT 60 U/L (7-56) H 01/25/18 06:15 Alkaline Phosphatase 144 U/L (38-126) H 01/25/18 06:15 Lactate Dehydrogenase 457 U/L (333-699) 01/23/18 14:16 Total Creatine Kinase 42 U/L (35-230) 01/23/18 14:16 Troponin I < 0.01 ng/mL 01/23/18 14:16 Total Protein 6.5 g/dL (5.8-8.3) 01/25/18 06:15 Albumin 3.5 g/dL (3.0-4.8) 01/25/18 06:15 Globulin 3.0 gm/dL 01/25/18 06:15 Albumin/Globulin Ratio 1.2 (1.1-1.8) 01/25/18 06:15 Amylase 75 U/L (35-125) 01/23/18 14:16 Lipase 49 U/L (23-300) 01/23/18 14:16 Venous Blood Potassium 3.9 mmol/L (3.6-5.2) 01/23/18 14:16 Urine Color Yellow (YELLOW) 01/23/18 14:16 Urine Appearance Clear (CLEAR) 01/23/18 14:16 Urine pH 6.5 (4.7-8.0) 01/23/18 14:16 Ur Specific [place] 1.025 (1.005-1.035) 01/23/18 14:16 Urine Protein Trace mg/dL (<30 mg/dL) H 01/23/18 14:16 Urine Glucose (UA) Negative mg/dL (NEGATIVE) 01/23/18 14:16 Urine Ketones Negative mg/dL (NEGATIVE) 01/23/18 14:16 Urine Blood Negative (NEGATIVE) 01/23/18 14:16 Urine Nitrate Negative (NEGATIVE) 01/23/18 14:16 Urine Bilirubin Negative (NEGATIVE) 01/23/18 14:16 Urine Urobilinogen 0.2 E.U./dL (<1 E.U./dL) 01/23/18 14:16 Ur Leukocyte Esterase Small Juan/uL (NEGATIVE) H 01/23/18 14:16 Urine RBC 0 - 2 /hpf (0-2) 01/23/18 14:16 Urine WBC 5 - 10 /hpf (0-6) 01/23/18 14:16 Ur Epithelial Cells Many /hpf (0-5) 01/23/18 14:16 Amorphous Sediment Few 01/23/18 14:16 Urine Bacteria Many (NEG) 01/23/18 14:16 Urine Other [place] 01/23/18 14:16 - Hospital Course Hospital Course: Pt is a 57 yo female with a PMH of hypothyroid, migraine headaches, UTI's, HLD who presents with "excruciating right sided abdominal pain" which woke her from sleep at 2am the night before admission to the hospital. Pt reports taking Rolaids which did not relieve the pain very much. Pt also admitted to feeling feverish and having chills. The pain felt like pressure which was somewhat relieved by moving her bowels. She denied blood in the stool, chest pain, or SOB. Pt reports having a migraine all day yesterday. She admits to having an irritation/ discomfort during urination. Pt denies vomiting, but admits to nausea. Pt is tolerating her diet well. She was advised to tolerate her diet slowly after discharge and to only eat foods similar to her soft diet while in the hospital, for at least one week after discharge. Vanc added to flagyl and aztreonam for streptococcus coverage during her stay. Patient placed on Imitrex for migraines. Pt to be discharged on Bactrim and Flagyl. Pt advised to follow up with a GI doc for a colonoscopy in 6-8 weeks. Pt advised to return to the nearest ED if her symptoms return/ worsen. - Date & Time of H&P Date of H&P: 01/25/18 Time of H&P: 06:00 Discharge Exam - Head Exam Head Exam: ATRAUMATIC, NORMAL INSPECTION, NORMOCEPHALIC - Eye Exam Eye Exam: EOMI - ENT Exam ENT Exam: Mucous Membranes Moist - Neck Exam Neck exam: Full Rom - Respiratory Exam Respiratory Exam: NORMAL BREATHING PATTERN. absent: Accessory Muscle Use, Wheezes, Respiratory Distress, Stridor - Cardiovascular Exam Cardiovascular Exam: REGULAR RHYTHM, RRR, +S1, +S2. absent: Diastolic murmur, JVD - GI/Abdominal Exam GI & Abdominal Exam: Normal Bowel Sounds. absent: Distended, Firm, Guarding Additional comments: mild tenderness to palpation, greatly improved - Extremities Exam Extremities exam: full ROM - Back Exam Back exam: FULL ROM. absent: CVA tenderness (L), CVA tenderness (R) - Neurological Exam Neurological exam: Alert, Oriented x3 - Psychiatric Exam Psychiatric exam: Normal Affect, Normal Mood - Skin Skin Exam: Dry, Intact, Normal Color Discharge Plan - Discharge Medications Prescriptions: Metronidazole [Flagyl] 500 mg PO Q8 #33 tablet Sulfamethoxazole/Trimethoprim [Bactrim DS 800 mg-160 mg] 1 tab PO BID #22 tab - Follow Up Plan Condition: SERIOUS Disposition: HOME/ ROUTINE Instructions: Diverticulitis (DC), Diverticulitis Additional Instructions: 1.Please follow up with your PMD within 3-5 days. 2.Follow up with gastroenterology for colonoscopy within 6-8 weeks. 3.You were given two prescriptions for bactrim and flagyl. Please take as directed. Be also sure to continue with a soft diet for at least 4 more days, 4.If symptoms worsen or return please go to your nearest emergency department. Referrals: Fanta Kate MD [Primary Care Provider] - <Elliot Monge - Last Filed: 01/26/18 16:14> Provider - Provider Date of Admission: 01/23/18 16:49 Attending physician: Elliot Monge MD Primary care physician: Fanta Kate MD Hospital Course - Lab Results Lab Results: Most Recent Lab Values WBC 6.0 10^3/ul (4.5-11.0) 01/25/18 06:15 RBC 4.56 10^6/uL (3.5-6.1) 01/25/18 06:15 Hgb 12.2 g/dL (12.0-16.0) 01/25/18 06:15 Hct 36.4 % (36.0-48.0) 01/25/18 06:15 MCV 79.8 fl (80.0-105.0) L 01/25/18 06:15 MCH 26.8 pg (25.0-35.0) 01/25/18 06:15 MCHC 33.5 g/dl (31.0-37.0) 01/25/18 06:15 RDW 14.1 % (11.5-14.5) 01/25/18 06:15 Plt Count 217 10^3/uL (120.0-450.0) 01/25/18 06:15 MPV 9.1 fl (7.0-11.0) 01/25/18 06:15 Gran % 73.3 % (50.0-68.0) H 01/25/18 06:15 Lymph % (Auto) 19.8 % (22.0-35.0) L 01/25/18 06:15 [place] % (Auto) 5.0 % (1.0-6.0) 01/25/18 06:15 Eos % (Auto) 1.7 % (1.5-5.0) 01/25/18 06:15 Baso % (Auto) 0.2 % (0.0-3.0) 01/25/18 06:15 Gran # 4.40 (1.4-6.5) 01/25/18 06:15 Lymph # (Auto) 1.2 (1.2-3.4) 01/25/18 06:15 [place] # (Auto) 0.3 (0.1-0.6) 01/25/18 06:15 Eos # (Auto) 0.1 (0.0-0.7) 01/25/18 06:15 Baso # (Auto) 0.01 K/mm3 (0.0-2.0) 01/25/18 06:15 PT 14.9 SECONDS (9.4-12.5) H 01/23/18 14:16 INR 1.30 01/23/18 14:16 APTT 34.7 Seconds (25.1-36.5) 01/23/18 14:16 pO2 20 mm/Hg (30-55) L 01/23/18 14:16 VBG pH 7.37 (7.32-7.43) 01/23/18 14:16 VBG pCO2 58.0 (40-60) 01/23/18 14:16 VBG HCO3 33.5 mmol/l (21-28) H 01/23/18 14:16 VBG Total CO2 35.3 mmol.L (22-28) H 01/23/18 14:16 VBG O2 Sat (Calc) 35.8 % (40-65) L 01/23/18 14:16 VBG Base Excess 6.4 mmol/L (0.0-2.0) H 01/23/18 14:16 VBG Potassium 3.9 mmol/L (3.6-5.2) 01/23/18 14:16 Sodium 139.0 mmol/L (132-148) 01/23/18 14:16 Chloride 102.0 mmol/L (98-107) 01/23/18 14:16 Glucose 85 mg/dl (65-105) 01/23/18 14:16 Lactate 1.3 mmol/L (0.7-2.1) 01/23/18 14:16 FiO2 21.0 % 01/23/18 14:16 Sodium 143 mmol/L (132-148) 01/25/18 06:15 Potassium 4.1 mmol/L (3.6-5.0) 01/25/18 06:15 Chloride 108 mmol/L (98-107) H 01/25/18 06:15 Carbon Dioxide 28 mmol/L (21-33) 01/25/18 06:15 Anion Gap 12 (10-20) 01/25/18 06:15 BUN 8 mg/dL (7-21) 01/25/18 06:15 Creatinine 0.8 mg/dl (0.7-1.2) 01/25/18 06:15 Est GFR ( Amer) > 60 01/25/18 06:15 Est GFR (Non-Af Amer) > 60 01/25/18 06:15 POC Glucose (mg/dL) 61 mg/dL (65-110) L 01/23/18 14:36 Random Glucose 95 mg/dL (70-110) 01/25/18 06:15 Calcium 10.6 mg/dL (8.4-10.5) H 01/25/18 06:15 Phosphorus 3.2 mg/dL (2.5-4.5) 01/25/18 06:15 Magnesium 2.1 mg/dL (1.7-2.2) 01/25/18 06:15 Total Bilirubin 0.4 mg/dL (0.2-1.3) 01/25/18 06:15 AST 46 U/L (14-36) H 01/25/18 06:15 ALT 60 U/L (7-56) H 01/25/18 06:15 Alkaline Phosphatase 144 U/L (38-126) H 01/25/18 06:15 Lactate Dehydrogenase 457 U/L (333-699) 01/23/18 14:16 Total Creatine Kinase 42 U/L (35-230) 01/23/18 14:16 Troponin I < 0.01 ng/mL 01/23/18 14:16 Total Protein 6.5 g/dL (5.8-8.3) 01/25/18 06:15 Albumin 3.5 g/dL (3.0-4.8) 01/25/18 06:15 Globulin 3.0 gm/dL 01/25/18 06:15 Albumin/Globulin Ratio 1.2 (1.1-1.8) 01/25/18 06:15 Amylase 75 U/L (35-125) 01/23/18 14:16 Lipase 49 U/L (23-300) 01/23/18 14:16 Venous Blood Potassium 3.9 mmol/L (3.6-5.2) 01/23/18 14:16 Urine Color Yellow (YELLOW) 01/23/18 14:16 Urine Appearance Clear (CLEAR) 01/23/18 14:16 Urine pH 6.5 (4.7-8.0) 01/23/18 14:16 Ur Specific [place] 1.025 (1.005-1.035) 01/23/18 14:16 Urine Protein Trace mg/dL (<30 mg/dL) H 01/23/18 14:16 Urine Glucose (UA) Negative mg/dL (NEGATIVE) 01/23/18 14:16 Urine Ketones Negative mg/dL (NEGATIVE) 01/23/18 14:16 Urine Blood Negative (NEGATIVE) 01/23/18 14:16 Urine Nitrate Negative (NEGATIVE) 01/23/18 14:16 Urine Bilirubin Negative (NEGATIVE) 01/23/18 14:16 Urine Urobilinogen 0.2 E.U./dL (<1 E.U./dL) 01/23/18 14:16 Ur Leukocyte Esterase Small [place]/uL (NEGATIVE) H 01/23/18 14:16 Urine RBC 0 - 2 /hpf (0-2) 01/23/18 14:16 Urine WBC 5 - 10 /hpf (0-6) 01/23/18 14:16 Ur Epithelial Cells Many /hpf (0-5) 01/23/18 14:16 Amorphous Sediment Few 01/23/18 14:16 Urine Bacteria Many (NEG) 01/23/18 14:16 Urine Other [place] 01/23/18 14:16 Attending/Attestation - Attestation I have personally seen and examined this patient.: Yes I have fully participated in the care of the patient.: Yes I have reviewed all pertinent clinical information, including history, physical exam and plan: Yes Notes (Text): 01/26/18 16:09 Medical record note made by the resident after discussion with my direction and input after the patient was personally seen and examined by me. I have reviewed the chart and agree that the record accurately reflects by personal performance of the history, physical exam, data review, and medical decision-making, in the course for the patient. I have also personally directed the plan of care. 57 yrs old female with PMH of hypothyroid, migraine headaches and hyperlipidemia was admitted with acute sigmoid diverticulitis. Patient will need Colonoscopy in 6-8 weeks as out patient.She has responded well. Patient is tolerating soft diet. She will be discharged home on oral Bactrim and Flagyl Management plan was discussed in detail with patient. Education was provided.
--- NOTE | 2018-01-25 17:32 | CP.PCM.PN ---
Subjective - Date & Time of Evaluation Date of Evaluation: 01/25/18 Time of Evaluation: 07:00 - Subjective Subjective: General Surgery Dr. Cardenas Pt seen and examined @bedside. no acute events overnight. denies abd pain. denies F/C, N/V, D/C. tolerating CLD. (+)BM Objective - Vital Signs/Intake and Output Vital Signs (last 24 hours): Temp Pulse Resp BP Pulse Ox 98.2 F 73 20 127/76 100 01/25/18 14:00 01/25/18 14:00 01/25/18 14:00 01/25/18 14:00 01/25/18 14:00 Intake and Output: 01/25/18 01/25/18 06:59 18:59 Intake Total 360 Balance 360 - Medications Medications: Current Medications Atorvastatin Calcium (Lipitor) 20 mg PO DIN [facility] Last Admin: 01/24/18 17:42 Dose: 20 mg Enoxaparin Sodium (Lovenox) 40 mg SC DAILY [place] PRN Reason: Protocol Last Admin: 01/25/18 09:18 Dose: 40 mg Metronidazole (Flagyl) 500 mg in 100 mls @ 100 mls/hr IVPB Q8 [place] PRN Reason: Protocol Last Admin: 01/25/18 15:33 Dose: 100 mls/hr Lactated Ringer's (Lactated Ringer's) 1,000 mls @ 126 mls/hr IV .[id number] [facility] Last Admin: 01/25/18 09:19 Dose: 126 mls/hr Aztreonam (Azactam 1 Gm) 100 mls @ 100 mls/hr IVPB Q8 [place] PRN Reason: Protocol Stop: 01/30/18 22:01 Last Admin: 01/25/18 13:29 Dose: 100 mls/hr Levothyroxine Sodium (Synthroid) 50 mcg PO 0600 [facility] Last Admin: 01/25/18 05:49 Dose: 50 mcg Morphine Sulfate (Morphine) 1 mg IVP Q3H PRN PRN Reason: Pain, moderate (4-7) Last Admin: 01/24/18 09:28 Dose: 1 mg Sumatriptan Succinate (Imitrex Tab) 100 mg PO Q12 PRN PRN Reason: migraines Last Admin: 01/25/18 16:15 Dose: 100 mg - Labs Labs: 01/25/18 06:15 01/25/18 06:15 PT 14.9 SECONDS (9.4-12.5) H 01/23/18 14:16 INR 1.30 01/23/18 14:16 APTT 34.7 Seconds (25.1-36.5) 01/23/18 14:16 - Constitutional Appears: Non-toxic, No Acute Distress - Head Exam Head Exam: NORMAL INSPECTION - Eye Exam Eye Exam: Normal appearance - ENT Exam ENT Exam: Mucous Membranes Moist - Respiratory Exam Respiratory Exam: NORMAL BREATHING PATTERN. absent: Accessory Muscle Use, Respiratory Distress - Cardiovascular Exam Cardiovascular Exam: REGULAR RHYTHM. absent: Bradycardia, Tachycardia - GI/Abdominal Exam GI & Abdominal Exam: Soft. absent: Distended, Firm, Guarding, Rigid, Tenderness , Rebound - Extremities Exam Extremities Exam: Normal Inspection - Neurological Exam Neurological Exam: Alert, Awake, Oriented x3 - Psychiatric Exam Psychiatric exam: Normal Affect, Normal Mood - Skin Skin Exam: Dry, Intact, Normal Color, Warm Assessment and Plan - Assessment and Plan (Free Text) Assessment: 57 y/o F w/ diverticulitis - ADAT - cont Abx - cont pain management - encourage OOB to chair/Amb/IS use - outpatient colonoscopy in 6-8weeks Pt discussed w/ Dr. Ronald Carbajal DO PGY3
[2018-01-25] MEDS ORDERED: Tmp-Smz 800 mg-160 mg DS Tab PO ONE (22:15)
== END 2018-01-25 23:05 | disposition home or self-care (01) | DRG 392 ==
LOC: ED 13:18 → ERH 16:49 → 5RNO 18:03
PROVIDERS: ADMIT Internal Medicine; ATTEND Internal Medicine
DX: K57.32 Diverticulitis of large intestine without perforation or abscess without bleeding (principal); N39.0 Urinary tract infection, site not specified; I10 Essential (primary) hypertension; E03.9 Hypothyroidism, unspecified; Z83.3 Family history of diabetes mellitus; Z82.49 Family history of ischemic heart disease and other diseases of the circulatory system; E78.5 Hyperlipidemia, unspecified; G43.909 Migraine, unspecified, not intractable, without status migrainosus; Z86.73 Personal history of transient ischemic attack (TIA), and cerebral infarction without residual deficits; Z87.410 Personal history of cervical dysplasia; Z90.710 Acquired absence of both cervix and uterus; Z88.1 Allergy status to other antibiotic agents; Z88.0 Allergy status to penicillin; Z90.49 Acquired absence of other specified parts of digestive tract